=== PATIENT | female | born 1935 | race African-American/Black ===

== ENCOUNTER 2020-11-30 09:15 | Emergency (ER) | payer OTHER ==
[~2020-11-30] VITALS: Ht 162.6 cm; Wt 73.0 kg
[2020-11-30 10:23] LABS: BASOPHILS % 0.4 % (0.0-2.0); EOSINOPHILS % 0.5 % (0.0-5.0); HEMATOCRIT. 31.7 % (36.0-48.0); HEMOGLOBIN. 10.1 g/dL (12.0-16.0); LYMPHOCYTES % 24.5 % (20.0-50.0); MEAN CORPUSCULAR VOLUME 81.4 fL (81.0-99.0); MEAN PLATELET VOLUME 7.8 fl (7.4-10.4); NEUTROPHILS % 65.6 % (40.0-76.0); PLATELET 280 x1000/uL (130-400); RED BLOOD CELL COUNT 3.89 mill/uL (4.2-5.4); RED CELL DISTRIBUTION WIDTH 13.4 % (11.6-14.6)
[2020-11-30 10:26] LABS: CHLORIDE 107 mEq/L (98-107)
[2020-11-30] MEDS ORDERED: ASPIRIN 81MG TABLET PO NR (10:45)
[2020-11-30 12:00] VITALS: BP 145/58
== END 2020-11-30 13:13 | disposition short-term general hospital (02) ==
LOC: ER 09:15 → CANBEDREQ 12:14 → ER 13:13
DX: R07.89 Other chest pain (principal); I10 Essential (primary) hypertension; E78.00 Pure hypercholesterolemia, unspecified; Z20.822 Contact with and (suspected) exposure to COVID-19
CPT/HCPCS: 36415; 71045; 80053; 83880; 84484; 85025; 87426; 93005; 99285

== ENCOUNTER 2023-10-17 16:55 | Emergency (ER) | payer OTHER ==
[~2023-10-17] VITALS: Ht 165.1 cm; Wt 62.0 kg
[2023-10-17 17:03] VITALS: O2SAT 97
[2023-10-17] MEDS: SODIUM CHLORIDE 0.9% 500 ML IV ONE (18:23)
[2023-10-17] MEDS: AMPICILLIN SOD/SULBACTAM NA 3 G in SODIUM CHLORIDE 0.9% 100 ML IV SCH (18:23)
[2023-10-17 21:25] LABS: BASOPHILS % 0.2 % (0.0-2.0); DIFFERENTIAL COMMENT 0; HEMATOCRIT. 26.6 % (36.0-48.0); HEMOGLOBIN. 8.5 g/dL (12.0-16.0); LYMPHOCYTES % 9.3 % (20.0-50.0); MEAN CORPUSCULAR HEMOGLOBIN 25.2 pg (28.0-32.0); MEAN CORPUSCULAR VOLUME 78.9 fL (81.0-99.0); MEAN PLATELET VOLUME 7.4 fl (7.4-10.4); MONOCYTES % 13.2 % (2.0-8.0); NEUTROPHILS % 77.3 % (40.0-76.0); PLATELET 252 x1000/uL (130-400); RED BLOOD CELL COUNT 3.38 mill/uL (4.2-5.4); RED CELL DISTRIBUTION WIDTH 15.1 % (11.6-14.6); WHITE BLOOD COUNT 5.8 x1000/uL (4.5-11.0)
[2023-10-17 21:33] LABS: CHLORIDE 102 mEq/L (98-107); POTASSIUM 3.1 mEq/L (3.5-5.1); SODIUM 138 mEq/L (136-145)
[2023-10-17 21:34] LABS: CALCIUM 10.1 mg/dL (8.7-10.4); CARBON DIOXIDE 30 mEq/L (21-32)
[2023-10-17 21:37] LABS: PROTHROMBIN TIME 11.2 sec (9.6-11.0)
[2023-10-17 21:39] LABS: CREATININE 0.6 mg/dL (0.6-1.0); GLUCOSE 114 mg/dL (70-105); UREA NITROGEN BLOOD 15 mg/dL (9-23)
[2023-10-17 21:40] LABS: TROPONIN I HIGH SENSITIVITY 20 ng/L (3.0-34)
[2023-10-17 21:41] LABS: ALANINE AMINOTRANSFERASE 7 IU/L (10-49); ALBUMIN 4.2 g/dL (3.2-4.8); ASPARTATE AMINOTRANSFERASE 26 IU/L (<34); BILIRUBIN DIRECT 0.3 mg/dL (<=3.0); BILIRUBIN TOTAL 0.9 mg/dL (0.1-1.0); PROTEIN TOTAL 6.7 g/dL (6.0-8.3)
[2023-10-17] MEDS: POTASSIUM CHLORIDE 20MEQ/PACKET PO ONE (22:48)
[2023-10-18 01:30] VITALS: BP 142/57; PULSE 87; RESP 23; TEMP 98.5
== END 2023-10-18 02:00 | disposition short-term general hospital (02) ==
LOC: ER 16:55
DX: L03.115 Cellulitis of right lower limb (principal); R41.82 Altered mental status, unspecified; I10 Essential (primary) hypertension; E78.00 Pure hypercholesterolemia, unspecified
CPT/HCPCS: 99285; 96365; 71045; 96366 ×2; 80076; 80048; 83605; 85025; 85610; 87040; 84484; 36415; 84145; 93005; J0295; J7050; J7030